=== PATIENT | male | born 1980 | race Caucasian/White ===

== ENCOUNTER 2023-04-09 15:30 | Outpatient (RCR) | payer OTHER, SELFPAY | END 2023-08-07 23:59 | disposition home or self-care (01) | PROVIDERS: PCP Family Medicine; Visit Provider Family Medicine | DX: M65.4 Radial styloid tenosynovitis [de Quervain] (principal); Z51.89 Encounter for other specified aftercare | CPT/HCPCS: 97035; 97110; 97112; 97140; 97165; 97535; L3808; X5282 ==